=== PATIENT | female | born 1940 | race Caucasian/White ===

== ENCOUNTER 2018-01-14 06:12 | Observation (INO) | payer MEDICARE, BC ==
[2018-01-13 15:49] LABS: INR 0.99
[2018-01-14] VITALS (14 sets, daily range): BP systolic 100–150; BP diastolic 52–86
[~2018-01-14] VITALS: Ht 162.6 cm; Wt 82.1 kg
[~2018-01-14 06:12] MED LIST: CHOL10005 PO; DULO30CA35 PO; IBUP-1671 PO; IBUP1TAB90 PO; METO25TA23 PO
[2018-01-14] MEDS ORDERED: VANCOMYCIN(*) 1 GM VIAL 1 GM, VANCOMYCIN (*) 0.5 GM VIAL 0.25 GM in NS(*) 0.9% 250 ML B... IVPB ONE (07:30)
[2018-01-14] MEDS ORDERED: PROPOFOL EMUL(*) 10MG/ML 20 ML 20 ML ONE (08:36)
[2018-01-14] MEDS ORDERED: MIDAZOLAM 2 MG/2 ML VIAL ONE (08:36)
[2018-01-14] MEDS ORDERED: DEXAMETHASONE SOD PHOS 10MG/ML ONE (08:36)
[2018-01-14] MEDS ORDERED: fentaNYL CITR 100 MCG/2 ML AMP ONE ×2 (08:36→12:13)
[2018-01-14] MEDS ORDERED: ONDANSETRON 4 MG/2 ML VIAL ONE (08:36)
[2018-01-14] MEDS ORDERED: LIDOCAINE MPF 1% 5 ML VIAL ONE (08:36)
[2018-01-14] MEDS ORDERED: ROPIVACAINE 0.2% 20 ML VIAL ONE (08:41)
[2018-01-14] MEDS ORDERED: LIDOCAINE/SOD BICARB 8.4% SYR ID ONE (08:55)
[2018-01-14] MEDS ORDERED: CELECOXIB 200 MG CAP PO ONE (08:55)
[2018-01-14] MEDS ORDERED: cloNIDine EPIDUR INJ 100MCG/ML 40 MCG, ROPIVACAINE 0.5% 20 ML VIAL 25 ML, EPINEPHrine H... INJ ONE (08:55)
[2018-01-14] MEDS ORDERED: NORMOSOL R SOLN(*) 1000 ML BAG 1,000 ML IV PRN ×2 (08:55→11:40)
[2018-01-14] MEDS ORDERED: TRANEXAMIC AC 1000 MG/10ML SDV 1,000 MG in DEXTROSE 5% 50 ML BAG 50 ML IV ONE (08:55)
[2018-01-14] MEDS ORDERED: ACETAMINOPHEN 500 MG TAB PO ONE (08:55)
[2018-01-14] MEDS ORDERED: ROPIVACAINE 0.2% 400 MG/200ML 250 ML CONINFUS ONE (08:55)
[2018-01-14] MEDS ORDERED: MIDAZOLAM 2 MG/2 ML VIAL IVP PRN (08:55)
[2018-01-14] MEDS ORDERED: FAMOTIDINE 20 MG TAB PO ONE (08:55)
[2018-01-14] MEDS ORDERED: CLINDAMYCIN(*) 900 MG/NS 50 ML 50 ML IVPB ONE (08:55)
[2018-01-14] MEDS ORDERED: PREGABALIN 75 MG CAPSULE PO ONE (08:55)
[2018-01-14] MEDS ORDERED: LABETALOL HCL 100 MG/20ML VIAL ONE (10:21)
[2018-01-14] MEDS ORDERED: hydrALAZINE HCL 20 MG/ML VIAL ONE (10:22)
[2018-01-14] MEDS ORDERED: PROMETHAZINE 25 MG/ML 1 ML AMP ONE (11:20)
[2018-01-14] MEDS ORDERED: MORPHINE 4 MG/ML SDV IVP PRN (11:40)
[2018-01-14] MEDS ORDERED: ZOLPIDEM TARTRATE 5 MG TAB PO PRN (11:40)
[2018-01-14] MEDS ORDERED: MAGNESIUM HYDROXIDE* 30ML UDCP PO PRN (11:40)
[2018-01-14] MEDS ORDERED: ONDANSETRON 4 MG/2 ML VIAL IVP PRN (11:40)
[2018-01-14] MEDS ORDERED: BISACODYL 10 MG SUPP PR PRN (11:40)
[2018-01-14] MEDS ORDERED: PROMETHAZINE 25 MG/ML 1 ML AMP IVP PRN (11:40)
[2018-01-14] MEDS ORDERED: FLUSH 10 ML SYR IVP PRN (11:40)
[2018-01-14] MEDS ORDERED: KETOROLAC TROM 10MG TAB PO PRN (11:45)
[2018-01-14] MEDS ORDERED: NORMOSOL R SOLN(*) 1000 ML BAG 1,000 ML IV ONE (12:15)
--- NOTE | 2018-01-14 13:21 | RADIOLOGY IMAGING REPORT ---
FACILITY: [facility] [place] PATIENT NAME: Little Arias : 1940 MR: [id number] V: [id number] EXAM DATE: ORDERING PHYSICIAN: NATHALIA VILLATORO TECHNOLOGIST: Location: [facility] Patient: Little Arias : 1940 Visit/Account:[id number] Date of Sevice: 01/14/2018 Exam type: KNEE LIMITED LEFT History: CHECK PLACEMENT OF PROSTHESIS LEFT KNEE Comparison: None. Findings: AP and lateral views of the left knee demonstrate a left knee arthroplasty in good anatomic alignment . Soft tissue gas projects over the anterior aspect this postoperative knee IMPRESSION: 1. Left knee arthroplasty appears in good anatomic alignment Report Dictated By: Layla Denney MD at 01/14/2018 1:15 PM Report E-Signed By: Layla Denney MD at 01/14/2018 1:18 PM WSN:[id number]
--- NOTE | 2018-01-14 13:54 | Hospitalist Consultation ---
History of Present Illness Requesting Physician Dr. Rosales Reason for Consult Medical Management Chief Complaint s/p left knee replacement History of Present Illness She was admitted s/p left knee replacement. It is reported the surgery went well and without complication. History Problems: (1) Hypertension Status: Chronic (2) Multiple sclerosis Status: Chronic (3) Depression Status: Chronic (4) Rheumatoid arthritis Status: Chronic Home Meds Reported Medications Ibuprofen/Diphenhydramine Cit (ADVIL PM CAPLET) 1 Each Tablet, 2 EACH PO QHS 01/11/18 Ibuprofen (MOTRIN IB) 200 Mg Tablet, 3-4 TAB PO Q6-8H PRN for PAIN 01/11/18 Cholecalciferol (Vitamin D3) (VITAMIN D3) 1,000 Unit Tablet, 1000 UNIT PO QDAY, TAB 01/11/18 Metoprolol Succinate (METOPROLOL SUCCINATE) 25 Mg Tab.er.24h, 1 TAB PO QDAY, TAB 01/11/18 Duloxetine Hcl (CYMBALTA) 30 Mg Capsule.dr, 30 MG PO QDAY, #5 CAP 01/11/18 Allergies: Coded Allergies: latex (Verified Allergy, Intermediate, ITCHING, 01/11/18) Penicillins (Verified Allergy, Mild, RASH, 01/11/18) codeine (Verified Allergy, Mild, RASH, 01/11/18) Patient History: FH: colon cancer FATHER FH: heart attack MOTHER Hx Smoking: No (1.5 PPD X 8 YEARS ) Smoking Status: Former Smoker When Quit Tobacco?: AGE 21 Caffeine Intake: Coffee Caffeine/Cups Per Day: 3 CUPS A DAY Hx Alcohol Use: No (HASN'T DRANK FOR YEARS ) Social Drug Use: Never Review of Systems All Systems Reviewed/Normal: Yes, Except as Noted Exam Vital Signs Vital Signs Date Time Temp Pulse Resp B/P (MAP) Pulse Ox O2 Delivery O2 Flow Rate FiO2 01/14/18 13:11 97.3 83 12 114/67 (83) 93 Nasal Cannula 2.0 General Appearance: Alert, Awake, No Acute Distress, Afebrile Neuro: No Gross deficits Cardiovascular: Regular Rate and Rhythm Respiratory: No Respiratory Distress, Clear to Auscultation Psych: Alert & Oriented X3, Appropriate Mood & Affect Assessment and Plan Problems: (1) Status post left knee replacement Status: Acute Assessment & Plan: Followed by Dr. Rosales. She will be started on Aspirin daily for VTE prophylaxis. She has no history of DVT or PE. (2) Hypertension Status: Chronic Assessment & Plan: She is on chronic treatment with Metoprolol. This has been restarted with hold parameters. (3) Depression Status: Chronic Assessment & Plan: She is on chronic treatment with Cymbalta. (4) Multiple sclerosis Status: Chronic Assessment & Plan: She does not have any treatments. (5) Rheumatoid arthritis Status: Chronic Assessment & Plan: She does take Ibuprofen daily. This will be held at this time. Venous Thromboembolism Antithrombotics Is Pt On Any Antithrombotics?: No ELSIE CONCEPCION LINE SERVICER Jan 14, 2018 13:54
[2018-01-14] MEDS ORDERED: ACETAMINOPHEN 500 MG TAB PO SCH (16:00)
[2018-01-15] VITALS (7 sets, daily range): BP systolic 106–131; BP diastolic 52–79; Ht 162.6 cm; Wt 82.1 kg
[2018-01-15] MEDS: ACETAMINOPHEN 500 MG TAB PO SCH ×3 (01:42→17:43)
--- NOTE | 2018-01-15 06:56 | OPERATIVE REPORT 1 ---
EVENT DATE: January 14, 2018 SURGEON: Pedro Rosales MD ANESTHESIOLOGIST: Stephen Marcum MD ANESTHESIA: Left indwelling adductor block followed by general. We also utilized 1 gram of IV tranexamic acid 10 minutes prior to start and at the end of the implantation, and 50 cc of our standard Toradol and Ropivacaine cocktail. CREDIT REVIEW OFFICER: Philippe flores PA-C PREOPERATIVE DIAGNOSIS Left knee degenerative joint disease. POSTOPERATIVE DIAGNOSIS Left knee degenerative joint disease. PROCEDURE PERFORMED Left total knee arthroplasty. IMPLANTS USED MicroPort medial pivot-shift CS systems with a 5 femur, 5 tibia, 12 mm CS insert, 8 x 32 symmetric patella, and femur cut at 6 degrees valgus and 10 mm. We also utilized two packages of [employer] [place] Blue cement and one ZipLine wound closure system. SPECIMENS None. COMPLICATIONS None. ESTIMATED BLOOD LOSS Less than 200 cc. DESCRIPTION OF PROCEDURE The patient was brought to the operating room after receiving appropriate preoperative antibiotics and then Dr. Marcum performed left adductor block, followed by general anesthesia. Left thigh tourniquet placed, but it was not utilized. The left lower extremity prepped and draped in the usual sterile fashion. Midline incision was made followed by a medial parapatellar arthrotomy. We dissected subperiosteally along the medial tibial plateau to the level of the semimembranosus insertion. We excised the fat pad, released the patella, everted this and brought the knee up in flexion. There was high grade III and a few areas of grade IV of the medial femoral condyle and grade III changes in the patellofemoral joint. There was grade II and III changes in the medial tibial plateau. There was spurring medially and laterally. We hyperflexed the knee, released ACL and PCL subperiosteally by Bovie. We utilized the step cut drill to broach the femoral canal after removing the remaining articular cartilage from the distal femoral condyles. Distal femoral limit guide was then positioned, setting our distal cutting block up at 10 mm, 6 degrees valgus. We pinned this in place, protected the soft tissue and made our cut. Three-degree external rotation guide was then positioned referencing our anterior flange, epicondyles, and posterior condyles. The femur sized to a #5 and we drilled the holes. The four-in-one cutting block was positioned, followed by Z retractors to protect the soft tissue, and we made our four cuts. The tibia was then brought anterior to the femur with appropriate retractors. Step cut drill utilized to broach the canal of the tibia and then the intramedullary tibial guide was then positioned. We then referenced for rotation and a 10 mm cut off the least involved lateral tibial plateau and pinned the block into place. We placed retractors and then made our cut. This was sided to a #5. The stump of the ACL, PCL, medial and lateral meniscus were removed by Bovie. A curved osteotome was utilized to remove the posterior osteophytes. Villavicencio elevator was utilized to elevate the capsule. A trial tibial baseplate was then positioned, referencing for the previous rotation, pinned into place. We started with a 10 and moved up to a 12 mm insert. The femoral trial was a #5. We were able to achieve full extension, flexion limited only by body habitus and stability through varus and valgus stress, and the anterior drawer was satisfactory. We brought the knee out full extension. The patella was sized to 22 mm in depth and this was cut down to 8 mm. Peg hole guide was positioned inferiorly and medially. The peg hole was drilled and this accepted a 32 x 8 patella trial. The knee was flexed, plugs drilled for the femur and plugs placed. A cut was made for the chip which was then placed. Again, the aforementioned range of motion and stability were noted and patella traced well. The patella, femur, and tibia inserts were removed. Appropriate retractors were placed and the tibial tower was positioned. This was then cut, reamed, and punched and this was then removed. Bone plug placed in the distal femur. We then injected 10 cc of our cocktail in the posterior capsule and then we irrigated copiously while we mixed our cement. The knee was then positioned appropriately with the retractors and the tibia cemented into place, followed by our 12 mm CS insert, then our femur. Excess amount was removed. The knee brought in full extension with axial compression while the cement cured and we cemented the patella. This took approximately 12 minutes for the cement to cure and again, we had the aforementioned range of motion and stability. As we were waiting for the cement to cure, we injected the remaining 4 cc of our cocktail into the quadriceps mechanism and we irrigated thereafter. We then closed the arthrotomy with #2 Vicryl followed by 2-0 Vicryl for the subcutaneous tissues and at a 45 degree angle of the knee our ZipLine wound closure system. Pressure dressing was applied. The patient was extubated and taken to recovery in stable condition. PLAN The hospitalist team was consulted for medical management and anticoagulation. PT for rehab. MERCEDES
[2018-01-15] MEDS: METOPROLOL SUCC XL 25 MG TABCR PO SCH (08:38)
[2018-01-15] MEDS: DULoxetine HCL 30 MG CAPCR PO SCH (08:38)
[2018-01-15] MEDS: ASPIRIN 325 MG TAB PO SCH (08:38)
--- NOTE | 2018-01-15 08:41 | Hospitalist Progress Note ---
Subjective Progress Notes Subjective No cp/sob. No concerns from the patient or staff. Physical Exam Vital Signs Date Time Temp Pulse Resp B/P (MAP) Pulse Ox O2 Delivery O2 Flow Rate FiO2 01/15/18 07:57 90 Nasal Cannula 0.5 01/15/18 07:57 98.1 81 18 111/52 (71) Intake and Output 01/15/18 07:00 Intake Total 2650 ml Output Total 180 ml Balance 2470 ml Intake Oral 550 ml IV Total 2100 ml Output Estimated Blood Loss 180 ml # Voids 4 General Appearance: Alert, Awake, No Acute Distress Result Diagram: 01/15/18 0520 Assessment and Plan Problems: (1) Status post left knee replacement Status: Acute Assessment & Plan: Followed by Dr. Rosales. She is on Aspirin daily for VTE prophylaxis. She has no history of DVT or PE. (2) Hypertension Status: Chronic Assessment & Plan: She is on chronic treatment with Metoprolol. This has been restarted with hold parameters. (3) Depression Status: Chronic Assessment & Plan: She is on chronic treatment with Cymbalta. (4) Multiple sclerosis Status: Chronic Assessment & Plan: She does not have any treatments. (5) Rheumatoid arthritis Status: Chronic Assessment & Plan: She does take Ibuprofen daily. This will be held at this time. Exam Sepsis Risk: No Definite Risk JAMESON WESTBROOK MD Jan 15, 2018 08:41
[2018-01-15] MEDS ORDERED: METOPROLOL SUCC XL 25 MG TABCR PO SCH (09:00)
[2018-01-15] MEDS: oxyCODONE HCL 5 MG CAP PO PRN ×2 (11:23→15:21)
[2018-01-15] MEDS ORDERED: diphenhydrAMINE 25 MG CAP PO PRN (22:05)
[2018-01-16] MEDS: ACETAMINOPHEN 500 MG TAB PO SCH ×2 (01:33→09:05)
[2018-01-16 03:29] VITALS: BP 151/79
[2018-01-16 07:07] VITALS: BP 129/62
[2018-01-16] MEDS ORDERED: ASPI-757 PO (08:30)
--- NOTE | 2018-01-16 08:32 | Hospitalist Progress Note ---
Subjective Progress Notes Subjective She has no complaints this morning. She had no acute events overnight. Patient Complains of: Cardiovascular: No: Chest Pain Respiratory: No: Shortness of Breath Physical Exam Vital Signs Date Time Temp Pulse Resp B/P (MAP) Pulse Ox O2 Delivery O2 Flow Rate FiO2 01/16/18 07:07 95 01/16/18 07:07 98.1 74 20 129/62 (84) Room Air 01/15/18 22:27 0.5 Intake and Output 01/16/18 07:00 Intake Total 1470 ml Balance 1470 ml Intake Oral 1470 ml # Voids 6 General Appearance: Alert, Awake, No Acute Distress, Afebrile Neuro: No Gross deficits Cardiovascular: Regular Rate and Rhythm Respiratory: No Respiratory Distress, Clear to Auscultation Psych: Alert & Oriented X3, Appropriate Mood & Affect Result Diagram: 01/16/18 0510 Assessment and Plan Problems: (1) Status post left knee replacement Status: Acute Assessment & Plan: Followed by Dr. Rosales. She is on Aspirin daily for VTE prophylaxis. She has no history of DVT or PE. (2) Hypertension Status: Chronic Assessment & Plan: She is on chronic treatment with Metoprolol. This has been restarted with hold parameters. (3) Depression Status: Chronic Assessment & Plan: She is on chronic treatment with Cymbalta. (4) Multiple sclerosis Status: Chronic Assessment & Plan: She does not have any treatments. (5) Rheumatoid arthritis Status: Chronic Assessment & Plan: She does take Ibuprofen daily. Exam Sepsis Risk: No Definite Risk ELSIE CONCEPCION COUPLING MACHINE OPERATOR Jan 16, 2018 08:32
[2018-01-16] MEDS: DULoxetine HCL 30 MG CAPCR PO SCH (09:05)
[2018-01-16] MEDS: ASPIRIN 325 MG TAB PO SCH (09:05)
[2018-01-16] MEDS: METOPROLOL SUCC XL 25 MG TABCR PO SCH (09:05)
[2018-01-16] MEDS ORDERED: HYDR-385 PO (09:09)
[2018-01-16 11:27] VITALS: BP 138/62
--- NOTE | 2018-01-16 13:46 | Medical Nutrition Therapy ---
Nutrition Anthropometrics Height (Inches): 64.00 Height (Calculated Centimeters: 162.816544 Weight (Pounds): 181 Weight (Calculated Kilograms): 82.100 Chris Nutrition Score: Adequate Chris Nutrition Risk Score: 19 Dietary Referral Nutrition Risk Factors: Nutrition Risk Comment: Physical Findings Physical Appearance: Obese BMI 30-39 Skin Appearance Skin Appearance: Edema Edema Location Modifier: Left Edema Location: Foot Type of Edema: Degree of Edema: Gastrointestinal Symptoms GI Symtoms: Tube Present: Bowel Sounds: Recent Bowel Pattern: Stool Characteristics: Nutritional Diagnosis Nutritional Risk Acuity 2: Swallowing Problem Nutritional Risk Acuity 4: Good Appetite Past Medical History: Hx of HTN, multiple sclerosis, depression, rheumatoid arthritis, and esophagus stretch Nutritional Acuity: 2-Moderate Nutrition Diagnosis: Swallowing Difficulties Nutrition Problem/Etiology/Sym: Swallowing difficulties, as related to physiological causes, as evidenced by eosphagus stretch and trouble swallowing palestinian fries. Energy Requirement: 1675 (Mckenzie, AF-1.3) Protein Requirement: 80 (1g/kg for healing) Fluid Requirement: 1600 (1ml/kcal) Diet Type: Diet as Tolerated KEMAL/REG Nutrition Intervention: Cont diet as ordered, Encourage intake Nutrition Monitoring & Eval RD Patient Assessment Time: [address] Assessment Type: RD Assessment Patient Nutrition Acuity: 2-Moderate Follow Up Date: Jan 21, 2018 Nutritional Comment: 01/15. Admitted for surgery, knee replacement. Pt is currently on KEMAL, consuming 75% of regular sized meals. There are no significant labs of concern. Pt is experiencing some edema, non-pitting in left ankle and left foot. It was noted pt was having occasional swallowing difficulty. Spoke to pt and she reported she mainly has issues with palestinian fries but no other foods. 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 Pt claims she eats too fast which is likely why she reports occassional swallowing difficulty. Pt is 64in, 181lbs, and BMI of 31.1. Will follow up with pt and cont to monitor. MR 01/16. Pt cont to consume 100% of meals. Whole BG is slightly elevated, 121. No other labs available and no weight gain or loss. Pt will be discharged today. Recommend 1675 kcal and 80 g protein for healing post surgery, each day. Will cont to monitor while in facility. ANTWON DENTON Jan 16, 2018 13:30
== END 2018-01-16 13:00 | disposition home or self-care (01) ==
LOC: OR 06:12 → MED 13:10
PROVIDERS: ADMIT Orthopaedic Surgery; ATTEND Orthopaedic Surgery
DX: M17.12 Unilateral primary osteoarthritis, left knee (principal); I10 Essential (primary) hypertension; G35 Multiple sclerosis; F32.9 Major depressive disorder, single episode, unspecified; G89.4 Chronic pain syndrome; M06.9 Rheumatoid arthritis, unspecified; E66.9 Obesity, unspecified; R13.10 Dysphagia, unspecified; I51.9 Heart disease, unspecified
CPT/HCPCS: 27447; 36415; 36416; 73560; 76942; 82948; 85014; 85018; 85610; 86850; 86900; 86901; 97116; 97161; 97530; A9270; C1713; C1776; G0378; J0171; J0360; J0735; J1100; J1885; J2001; J2250; J2405; J2550; J2704; J2795; J3010; J3370; J3490; J7050; J7060; Q0163